=== PATIENT | female | born 1980 | race Caucasian/White ===

== ENCOUNTER 2016-11-03 14:07 | Emergency (ER) | payer BC, SELFPAY ==
[2016-11-03] MEDS ORDERED: Fluorescein Opthalmic Strip ONE (14:22)
[2016-11-03] MEDS ORDERED: Tetracaine HCl 0.5% Ophth Soln 15 ML Bottle ONE (14:22)
[2016-11-03] MEDS ORDERED: Ketorolac Tromethamine 60 MG/2 ML VIAL ONE (14:31)
[2016-11-03] MEDS ORDERED: Silver Sulfadiazine 1% Cream 50 GM JAR ONE (14:40)
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
== END 2016-11-03 14:48 | disposition home or self-care (01) ==
LOC: BURERS 14:07
DX: T20.10XA Burn of first degree of head, face, and neck, unspecified site, initial encounter (principal); T22.112A Burn of first degree of left forearm, initial encounter; F17.210 Nicotine dependence, cigarettes, uncomplicated; X11.8XXA Contact with other hot tap-water, initial encounter
CPT/HCPCS: 96372; J1885

== ENCOUNTER 2017-03-20 13:20 | Emergency (ER) | payer SELFPAY ==
--- NOTE | 2017-03-20 21:02 | RAD ---
CHEST TWO VIEWS 03/20/17 Comparison is made with the 07/29/08 study. The heart is normal in size and the lungs are clear. No infiltrate or effusion was seen. There is so me curvature of the spine convexed right which could be positional. The mediastinum appears normal and the trachea is midline. IMPRESSION: No acute thoracic finding. POS: HOME
== END 2017-03-20 14:19 | disposition home or self-care (01) ==
LOC: BURERS 13:20
DX: J06.9 Acute upper respiratory infection, unspecified (principal); F90.9 Attention-deficit hyperactivity disorder, unspecified type; F17.210 Nicotine dependence, cigarettes, uncomplicated; Z79.899 Other long term (current) drug therapy
CPT/HCPCS: 71020; 93005

== ENCOUNTER 2022-08-20 21:54 | Emergency (ER) | payer OTHER, SELFPAY ==
[2022-08-20] MEDS ORDERED: Famotidine 20 MG TAB ONE (22:22)
[2022-08-20] MEDS ORDERED: Ondansetron ODT 4 MG TAB ONE (22:22)
== END 2022-08-20 22:27 | disposition home or self-care (01) ==
LOC: BURERS 21:54
DX: R11.0 Nausea (principal); R59.0 Localized enlarged lymph nodes; E78.5 Hyperlipidemia, unspecified; E78.00 Pure hypercholesterolemia, unspecified; I10 Essential (primary) hypertension; F17.210 Nicotine dependence, cigarettes, uncomplicated
CPT/HCPCS: 99283; Q0162